=== PATIENT | male | born 1995 | race Hispanic/Latino ===

== ENCOUNTER 2018-09-22 01:55 | Emergency (ER) | payer MEDICAID, OTHER ==
[2018-09-22 02:18] VITALS: TEMP 98; BMI 26.9
--- NOTE | 2018-09-22 03:03 | ED PDOC ---
Arrival/HPI - General Chief Complaint: GI Problem Time Seen by Provider: 09/22/18 02:28 Historian: Patient - History of Present Illness Narrative History of Present Illness (Text): 09/22/18 02:58 23 year old male, with a past medical history of GI discomfort, and bilateral abdominal hernia repair 6 days ago, presents to the emergency department with constipation. Patient informs he has had gastric issue in the past with const ipation. Patient states since the surgery, he has been constipated and unable to relieve himself. Patient states he does have bowel movements, but they are small and watery. Patient denies any abdominal pain, nausea, vomiting, appetite changes, fever, chills, or any other complaints. Time/Duration: < week Symptom Onset: Gradual Symptom Course: Unchanged Quality: Pressure Activities at Onset: Light Past Medical History - Provider Review Nursing Documentation Reviewed: Yes - Infectious Disease Hx of Infectious Diseases: None - Cardiac Hx Cardiac Disorders: No - Pulmonary Hx Respiratory Disorders: No - Neurological Hx Neurological Disorder: No - HEENT Hx HEENT Disorder: No Other/Comment: seasonal allergies - Renal Hx Renal Disorder: No - Endocrine/Metabolic Hx Endocrine Disorders: No - Hematological/Oncological Hx Blood Disorders: No - Integumentary Hx Dermatological Disorder: No - Musculoskeletal/Rheumatological Hx Musculoskeletal Disorders: No Hx Falls: No - Gastrointestinal Hx Gastrointestinal Disorders: Yes Hx Constipation: Yes Hx Gastritis: Yes Hx Irritable Bowel: Yes Other/Comment: inguinal hernia repair 09/2018 - Genitourinary/Gynecological Hx Genitourinary Disorders: No - Psychiatric Hx Psychophysiologic Disorder: No Hx Substance Use: No - Surgical History Other/Comment: inguinal hernia repair - 2019 - Anesthesia Hx Anesthesia: Yes Hx Anesthesia Reactions: No Hx Malignant Hyperthermia: No Family/Social History - Physician Review Nursing Documentation Reviewed: Yes Family/Social History: No Known Family HX Smoking Status: Never Smoked Hx Alcohol Use: No Hx Substance Use: No Allergies/Home Meds Allergies/Adverse Reactions: Allergies nut - unspecified Allergy (Verified 06/11/18 10:00) ANAPHYLAXIS soy Allergy (Verified 06/11/18 10:00) ANAPHYLAXIS seeds Allergy (Uncoded 06/11/18 10:00) ANAPHYLAXIS Home Medications: Home Meds Medication Instructions Recorded Confirmed No Known Home Med 01/07/18 01/30/18 Physical Exam Vital Signs Reviewed: Yes Vital Signs Temp Pulse Resp BP Pulse Ox 09/22/18 02:16 98 F 98 H 18 115/70 98 Temperature: Afebrile Blood Pressure: Normal Pulse: Tachycardic Respiratory Rate: Normal Appearance: Positive for: Well-Appearing, Non-Toxic, Comfortable Pain Distress: None Mental Status: Positive for: Alert and Oriented X 3 - Systems Exam Head: Present: Atraumatic, Normocephalic Pupils: Present: PERRL Extroacular Muscles: Present: EOMI Conjunctiva: Present: Normal Mouth: Present: Moist Mucous Membranes Neck: Present: Normal Range of Motion Respiratory/Chest: Present: Clear to Auscultation, Good Air Exchange. No: Respiratory Distress, Accessory Muscle Use Cardiovascular: Present: Regular Rate and Rhythm, Normal S1, S2. No: Murmurs Abdomen: Present: Normal Bowel Sounds. No: Tenderness, Distention, Peritoneal Signs Rectal: No: Other (no fecal impaction) Back: Present: Normal Inspection Upper Extremity: Present: Normal Inspection. No: Cyanosis, Edema Lower Extremity: Present: Normal Inspection. No: Edema Neurological: Present: GCS=15, CN II-XII Intact, Speech Normal Skin: Present: Warm, Dry, Normal Color. No: Rashes Psychiatric: Present: Alert, Oriented x 3, Normal Insight, Normal Concentration Medical Decision Making ED Course and Treatment: 09/22/18 03:05 Impression: 23 year old male presents with constipation Plan: -- Enulose -- Fleet enema -- Reassess and disposition Prior Visits: Notes and results from previous visits were reviewed. Progress Notes: 09/22/18 04:50 Patient has went to the bathroom with bowel movement and relief following ER treatment. - Scribe Statement The provider has reviewed the documentation as recorded by the Sven Lawrence Provider Scribe Attestation: All medical record entries made by the Caitibyolanda were at my direction and personally dictated by me. I have reviewed the chart and agree that the record accurately reflects my personal performance of the history, physical exam, medical decision making, and the department course for this patient. I have also personally directed, reviewed, and agree with the discharge instructions and disposition. Disposition/Present on Arrival - Present on Arrival Any Indicators Present on Arrival: No History of DVT/PE: No History of Uncontrolled Diabetes: No Urinary Catheter: No History of Decub. Ulcer: No History Surgical Site Infection Following: None - Disposition Have Diagnosis and Disposition been Completed?: Yes Diagnosis: Constipation Disposition: HOME/ ROUTINE Disposition Time: 04:47 Patient Plan: Discharge Patient Problems: Current Active Problems Problem Status Onset Constipation Acute Condition: GOOD Discharge Instructions (ExitCare): Constipation, Adult (DC) Additional Instructions: Drink plenty of liquids/Miralax as directed/follow up with your doctor this alba Referrals: Ike Myles MD [Primary Care Provider] - Follow up with primary Forms: [employer] (Micronesian)
[2018-09-22 05:19] VITALS: BP 118/74; PULSE 85; RESP 16; O2SAT 100
== END 2018-09-22 04:50 | disposition home or self-care (01) ==
LOC: ED 01:55
DX: K59.00 Constipation, unspecified (principal); Z98.890 Other specified postprocedural states